=== PATIENT | male | born 1955 | race Caucasian/White ===

== ENCOUNTER → 2016-07-11 | Outpatient (CLI) | payer BC ==
[2016-07-11 09:35] LABS: ALT 29 U/L (21-72); AST 19 U/L (17-59); Alkaline Phosphatase 82 U/L (38-126); Anion Gap 13 mmol/L; Blood Urea Nitrogen 21 mg/dL (9-20); Calcium 9.2 mg/dL (8.4-10.2); Carbon Dioxide 24 mmol/L (22-30); Chloride 106 mmol/L (98-107); Cholesterol 155 mg/dL (<200); Glucose 128 mg/dL (74-99); HDL Cholesterol 49 mg/dL (40-60); Non-African American GFR(MDRD) >60 (>60 ml/min/1.73 sqM); Potassium 4.6 mmol/L (3.5-5.1); Sodium 143 mmol/L (137-145); Total Bilirubin 0.5 mg/dL (0.2-1.3); Total Protein 7.3 g/dL (6.3-8.2); Triglycerides 124 mg/dL (<150)
== END | disposition home or self-care (01) ==
LOC: LABWHC1 07:17
PROVIDERS: ATTEND Internal Medicine Interventional Cardiology
DX: E78.2 Mixed hyperlipidemia (principal); I48.0 Paroxysmal atrial fibrillation
CPT/HCPCS: 36415; 80053; 80061; 84443

== ENCOUNTER → 2017-01-11 | Outpatient (CLI) | payer BC ==
[2017-01-11 08:04] LABS: ALT 29 U/L (21-72); AST 20 U/L (17-59); Alkaline Phosphatase 85 U/L (38-126); Anion Gap 13 mmol/L; Blood Urea Nitrogen 28 mg/dL (9-20); Calcium 9.5 mg/dL (8.4-10.2); Carbon Dioxide 21 mmol/L (22-30); Chloride 108 mmol/L (98-107); Cholesterol 165 mg/dL (<200); Glucose 111 mg/dL (74-99); HDL Cholesterol 41 mg/dL (40-60); Non-African American GFR(MDRD) 55 (>60 ml/min/1.73 sqM); Potassium 4.9 mmol/L (3.5-5.1); Sodium 142 mmol/L (137-145); Total Bilirubin 0.3 mg/dL (0.2-1.3); Total Protein 7.1 g/dL (6.3-8.2)
== END | disposition home or self-care (01) ==
LOC: LABWHC1 06:59
PROVIDERS: ATTEND Internal Medicine Interventional Cardiology
DX: E78.2 Mixed hyperlipidemia (principal)
CPT/HCPCS: 36415; 80053; 80061

== ENCOUNTER → 2017-06-19 | Outpatient (CLI) | payer BC ==
--- NOTE | 2017-06-19 10:48 | XR ---
EXAMINATION TYPE: XR chest 2V DATE OF EXAM: 06/19/2017 COMPARISON: 04/07/2015 TECHNIQUE: PA and lateral views submitted. HISTORY: Chest Pain FINDINGS: The lungs are clear and there is no pneumothorax, pleural effusion, or focal pneumonia. Hypertrophi c and degenerative change of the spine. IMPRESSION: 1. No acute process.
== END | disposition home or self-care (01) ==
LOC: CPPFTMAIN 10:14
PROVIDERS: ATTEND Internal Medicine Interventional Cardiology
DX: J44.9 Chronic obstructive pulmonary disease, unspecified (principal); I25.10 Atherosclerotic heart disease of native coronary artery without angina pectoris
CPT/HCPCS: 71046; 94060; 94726; 94729

== ENCOUNTER → 2017-11-07 | Outpatient (CLI) | payer BC ==
[2017-11-07 08:57] LABS: Potassium 5.6 mmol/L (3.5-5.1); Total Bilirubin 0.2 mg/dL (0.2-1.3); Total Protein 6.5 g/dL (6.3-8.2)
== END | disposition home or self-care (01) ==
LOC: LABWHC1 07:10
PROVIDERS: ATTEND Internal Medicine Interventional Cardiology
DX: E78.2 Mixed hyperlipidemia (principal); I48.0 Paroxysmal atrial fibrillation
CPT/HCPCS: 36415; 80053; 80061; 84443

== ENCOUNTER → 2018-06-02 | Outpatient (CLI) | payer BC ==
[2018-06-02 17:32] LABS: Albumin 4.4 g/dL (3.80-4.90); Anion Gap 7.6 mmol/L (4.00-12.00); Calcium 9.5 mg/dL (8.7-10.3); Carbon Dioxide 26.4 mmol/L (21.6-31.8); Globulin 2.2 g/dL (1.6-3.3); LDL Cholesterol,Calculated 99.2 mg/dL (0.0-131.0); Total Bilirubin 0.4 mg/dL (0.2-1.2); Total Protein 6.6 g/dL (6.2-8.2); VLDL Calculation 16.8 mg/dL (5.00-40.00)
== END | disposition home or self-care (01) ==
LOC: LABWHC1 09:13
PROVIDERS: ATTEND Nurse Practitioner Adult Health
DX: E78.2 Mixed hyperlipidemia (principal)
CPT/HCPCS: 36415; 80053; 80061

== ENCOUNTER → 2019-01-26 | Outpatient (CLI) | payer BC ==
[2019-01-26 19:26] LABS: African American GFR (CKD) 57.4 (60.0-200.0); Albumin 4.1 g/dL (3.80-4.90); Albumin/Globulin Ratio 2.05 (1.60-3.17); Anion Gap 7.5 mmol/L (4.00-12.00); BUN/Creat Ratio 16.67 Ratio (12.00-20.00); Calcium 8.9 mg/dL (8.7-10.3); Carbon Dioxide 28.5 mmol/L (21.6-31.8); Chol/HDL Ratio 3.48; LDL Cholesterol,Calculated 83.2 mg/dL (0.0-131.0); Potassium 5.2 mmol/L (3.5-5.5); Total Bilirubin 0.3 mg/dL (0.2-1.2); Total Protein 6.1 g/dL (6.2-8.2); VLDL Calculation 20.8 mg/dL (5.00-40.00)
== END | disposition home or self-care (01) ==
LOC: LABWHC1 08:17
PROVIDERS: ATTEND Nurse Practitioner Adult Health
DX: E78.2 Mixed hyperlipidemia (principal); I48.0 Paroxysmal atrial fibrillation; I25.5 Ischemic cardiomyopathy
CPT/HCPCS: 36415; 80053; 80061; 84443

== ENCOUNTER → 2019-10-18 | Outpatient (CLI) | payer BC ==
[2019-10-18 11:09] LABS: African American GFR (CKD) 52.7 (60.0-200.0); Albumin 4.1 g/dL (3.80-4.90); Albumin/Globulin Ratio 1.86 (1.60-3.17); Anion Gap 7.2 mmol/L (4.00-12.00); BUN/Creat Ratio 17.5 Ratio (12.00-20.00); Carbon Dioxide 24.8 mmol/L (21.6-31.8); Chol/HDL Ratio 3.27; Globulin 2.2 g/dL (1.6-3.3); LDL Cholesterol,Calculated 88.4 mg/dL (0.0-131.0); Non-African American GFR(CKD) 45.5 (60.0-200.0); Potassium 4.7 mmol/L (3.5-5.5); Total Bilirubin 0.5 mg/dL (0.3-1.2); Total Protein 6.3 g/dL (6.2-8.2); VLDL Calculation 20.6 mg/dL (5.00-40.00)
== END | disposition home or self-care (01) ==
LOC: LABWHC1 07:11
PROVIDERS: ATTEND Internal Medicine Interventional Cardiology
DX: E78.2 Mixed hyperlipidemia (principal); I48.0 Paroxysmal atrial fibrillation
CPT/HCPCS: 36415; 80053; 80061; 84443

== ENCOUNTER → 2020-11-17 | Outpatient (CLI) | payer BC ==
[2020-11-17 16:17] LABS: African American GFR (CKD) 52.4 (60.0-200.0); Albumin 4.3 g/dL (3.80-4.90); Albumin/Globulin Ratio 1.87 (1.60-3.17); Anion Gap 7.6 mmol/L (4.00-12.00); BUN/Creat Ratio 16.88 Ratio (12.00-20.00); Calcium 9.1 mg/dL (8.7-10.3); Carbon Dioxide 27.4 mmol/L (21.6-31.8); Globulin 2.3 g/dL (1.6-3.3); LDL Cholesterol,Calculated 41.6 mg/dL (0.0-131.0); Non-African American GFR(CKD) 45.2 (60.0-200.0); Potassium 4.9 mmol/L (3.5-5.5); Total Bilirubin 0.6 mg/dL (0.3-1.2); Total Protein 6.6 g/dL (6.2-8.2); VLDL Calculation 24.4 mg/dL (5.00-40.00)
== END | disposition home or self-care (01) ==
LOC: LABWHC1 07:10
PROVIDERS: ATTEND Internal Medicine Interventional Cardiology
DX: E78.2 Mixed hyperlipidemia (principal)
CPT/HCPCS: 36415; 80053; 80061

== ENCOUNTER → 2021-04-28 | Outpatient (CLI) | payer BC ==
[2021-04-28 10:42] LABS: ALT 15 U/L (10-49); AST 13 U/L (14-35); African American GFR (CKD) 61.1 (60.0-200.0); Albumin 4.1 g/dL (3.8-4.9); Albumin/Globulin Ratio 1.46 (1.60-3.17); Alkaline Phosphatase 99 U/L (41-126); BUN/Creat Ratio 18.14 Ratio (12.00-20.00); Blood Urea Nitrogen 25.4 mg/dL (9.0-27.0); Calcium 9.5 mg/dL (8.7-10.3); Carbon Dioxide 23.6 mmol/L (20.0-27.5); Chloride 103 mmol/L (96-109); Chol/HDL Ratio 2.44 Ratio; Globulin 2.8 g/dL (1.6-3.3); Glucose 118 mg/dL (70-110); LDL Cholesterol,Calculated 45.2 mg/dL (0.0-131.0); Non-African American GFR(CKD) 52.7 (60.0-200.0); Potassium 5.3 mmol/L (3.5-5.5); Sodium 138 mmol/L (135-145); Total Protein 6.9 g/dL (6.2-8.2); VLDL Calculation 18.56 mg/dL (5.00-40.00)
== END | disposition home or self-care (01) ==
LOC: LABWHC1 07:33
PROVIDERS: ATTEND Internal Medicine Interventional Cardiology
DX: I48.0 Paroxysmal atrial fibrillation (principal); E78.2 Mixed hyperlipidemia
CPT/HCPCS: 36415; 80053; 80061; 84443

== ENCOUNTER → 2021-12-07 | Outpatient (CLI) | payer BC ==
[2021-12-07 15:39] LABS: ALT 19 U/L (10-49); AST 17 U/L (14-35); African American GFR (CKD) 59.6 (60.0-200.0); Albumin 4.4 g/dL (3.8-4.9); Albumin/Globulin Ratio 1.84 (1.60-3.17); Alkaline Phosphatase 88 U/L (41-126); BUN/Creat Ratio 26.92 Ratio (12.00-20.00); Blood Urea Nitrogen 38.5 mg/dL (9.0-27.0); Calcium 9.6 mg/dL (8.7-10.3); Carbon Dioxide 23.1 mmol/L (20.0-27.5); Chloride 103 mmol/L (96-109); Chol/HDL Ratio 2.69 Ratio; Globulin 2.4 g/dL (1.6-3.3); Glucose 117 mg/dL (70-110); Non-African American GFR(CKD) 51.4 (60.0-200.0); Sodium 137 mmol/L (135-145); Total Protein 6.9 g/dL (6.2-8.2)
== END | disposition home or self-care (01) ==
LOC: LABWHC1 09:02
PROVIDERS: ATTEND Nurse Practitioner Adult Health
DX: I48.0 Paroxysmal atrial fibrillation (principal); E78.2 Mixed hyperlipidemia
CPT/HCPCS: 36415; 80053; 80061; 84443

== ENCOUNTER → 2023-07-24 | Outpatient (CLI) | payer MEDICARE, BC ==
--- NOTE | 2023-07-24 12:00 | XR ---
EXAMINATION TYPE: XR knee complete bilateral DATE OF EXAM: 07/24/2023 COMPARISON: NONE HISTORY: 68-year-old male chronic bilateral knee pain for 6 weeks TECHNIQUE: 3 views each site along with bilateral upright weightbearing view. FINDINGS: There is tricompartmental degenerative change in both sides with marginal spurring. Some me niscal chondrocalcinosis noted on the right. There is at least moderate loss of cartilage and joint s pace in the left medial compartment. Small knee joint effusions, left greater than right. On the weig htbearing view, we note [id number] abutment of the left medial compartment and mild overall narrowi ng of the joint space in the right medial compartment. The right medial meniscus may be torn and extr uded. No acute fracture, subluxation, dislocation. IMPRESSION: 1. Tricompartmental osteoarthrosis, severe, bone on bone left medial compartment. 2. Small joint effusions, left greater than right. 3. The right medial meniscus may be torn and extruded.
== END | disposition home or self-care (01) ==
LOC: RADXRMAIN 09:18
PROVIDERS: ATTEND Family Medicine
DX: M25.461 Effusion, right knee (principal); M25.462 Effusion, left knee

== ENCOUNTER 2023-10-17 08:23 | Inpatient (IN) | payer MEDICARE, BC ==
--- NOTE | 2023-10-17 08:50 | ED ---
General Adult HPI - General Chief complaint: Chest Pain Stated complaint: SOB Time Seen by Provider: 10/17/23 08:41 Source: patient, RN notes reviewed, old records reviewed Mode of arrival: wheelchair Limitations: no limitations - History of Present Illness Initial comments: 68-year-old male presenting with chest pain, dyspnea. History of atrial fibril lation. Patient is on Eliquis and atenolol. Patient states he took his medication this morning. Patient has had several days of diarrhea and has been drinking Gatorade and attempt to stay hydrated. Patient took nitroglycerin at home with some relief in his chest pain. - Related Data Home Medications Medication Instructions Recorded Confirmed Enalapril [Vasotec] 5 mg PO DAILY 04/07/15 10/17/23 Nitroglycerin Sl Tabs [Nitrostat] 0.4 mg SUBLINGUAL Q5M PRN 04/07/15 10/17/23 atenoloL [Tenormin] 25 mg PO BID 04/07/15 10/17/23 Atorvastatin [Lipitor] 40 mg PO DAILY 09/25/15 10/17/23 Apixaban [Eliquis] 5 mg PO BID 10/17/23 10/17/23 Aspirin EC [Ecotrin Low Dose] 81 mg PO DAILY 10/17/23 10/17/23 Cholecalciferol (Vitamin D3) 1,250 mcg PO AVALOS 10/17/23 10/17/23 [Vitamin D3 (1250 Mcg = 50,000 Iu)] Ezetimibe [Zetia] 10 mg PO DAILY 10/17/23 10/17/23 Allergies Allergy/AdvReac Type Severity Reaction Status Date / Time No Known Allergies Allergy Verified 10/17/23 11:26 Review of Systems ROS Statement: Those systems with pertinent positive or pertinent negative responses have been documented in the HPI. ROS Other: All systems not noted in ROS Statement are negative. Past Medical History Past Medical History: Atrial Fibrillation, Coronary Artery Disease (CAD), Chest Pain / Angina, Hyperlipidemia, Hypertension, Myocardial Infarction (LA), Osteoarthritis (OA), Prostate Disorder, Sleep Apnea/CPAP/BIPAP Additional Past Medical History / Comment(s): CPAP, papitations,diverticular disease, kidney stones, Last Myocardial Infarction Date:: 2003 History of Any Multi-Drug Resistant Organisms: None Reported Past Surgical History: Cardiac Ablation, Heart Catheterization With Stent Additional Past Surgical History / Comment(s): will knee arthroscopies, 2 heart cath-total 3 stents (pt not sure what arteries, colonoscopy, - lt eye sx d/t lazy eye. ovidio, cardioversion , Past Anesthesia/Blood Transfusion Reactions: No Reported Reaction Date of Last Stent Placement:: 2003 Past Psychological History: No Psychological Hx Reported Past Alcohol Use History: Occasional Past Drug Use History: None Reported - Past Family History Father Additional Family Medical History / Comment(s): age 68 from emphysema and etoh abuse. Mother Family Medical History: Congestive Heart Failure (CHF) Additional Family Medical History / Comment(s): still living-is 93 years aold General Exam Limitations: no limitations General appearance: alert, in no apparent distress Head exam: Present: atraumatic, normocephalic Eye exam: Present: normal appearance, PERRL ENT exam: Present: normal exam Neck exam: Present: normal inspection. Absent: tenderness, meningismus Respiratory exam: Present: normal lung sounds bilaterally. Absent: respiratory distress, wheezes Cardiovascular Exam: Present: tachycardia, irregular rhythm GI/Abdominal exam: Present: soft. Absent: distended, tenderness Extremities exam: Present: normal inspection, normal capillary refill. Absent: pedal edema Neurological exam: Present: alert, oriented X3 Psychiatric exam: Present: normal affect, normal mood Course Vital Signs 10/17/23 10/17/23 10/17/23 08:32 08:54 09:35 Temperature 97.6 F Pulse Rate 73 146 H 142 H Respiratory 16 24 20 Rate Blood Pressure 100/56 82/42 75/47 O2 Sat by Pulse 95 97 96 Oximetry 10/17/23 10/17/23 10/17/23 10:00 10:34 11:08 Temperature Pulse Rate 141 H 141 H Respiratory 20 20 Rate Blood Pressure 84/56 96/77 83/50 O2 Sat by Pulse 98 95 Oximetry Medical Decision Making - Medical Decision Making Was pt. sent in by a medical professional or institution (, PA, BUSINESS APPLICATIONS SPECIALIST, urgent care, hospital, or penitentiary...) When possible be specific @ -No Did you speak to anyone other than the patient for history (EMS, parent, family, police, friend...)? What history was obtained from this source @ -No Did you review nursing and triage notes (agree or disagree)? Why? @ -I reviewed and agree with nursing and triage notes Were old charts reviewed (outside hosp., previous admission, EMS record, old EKG, old radiological studies, urgent care reports/EKG's, penitentiary records)? Report findings @ -No old charts were reviewed Differential Dyspnea: Coronary syndrome, arrhythmia, tamponade, asthma, COPD, pulmonary embolism, pneumonia, pneumothorax, pulmonary effusion, anaphylaxis, diabetic ketoacidosis, flailed chest, pulmonary contusion, diaphragmatic rupture, anemia, neuromuscu lar, this is not meant to be an all-inclusive list. EKG interpreted by me (3pts min.). @ -EKG: Atrial fibrillation with RVR, rate of 155, QRS duration 90, QTc 371, no ST segment elevation. X-rays interpreted by me (1pt min.). @Chest x-ray is clear, no acute cardiopulmonary findings. CT interpreted by me (1pt min.). @ -None done U/S interpreted by me (1pt. min.). @ -None done What testing was considered but not performed or refused? (CT, X-rays, U/S, labs)? Why? @ -None What meds were considered but not given or refused? Why? @ -None Did you discuss the management of the patient with other professionals (professionals i.e. , PA, BUSINESS APPLICATIONS SPECIALIST, lab, RT, psych nurse, hospice social worker, tufter, teacher, casino surveillance officer, casework manager)? Give summary @ -Yes, discussed with Dr. Alves who will admit, case discussed with Dr. Byrd covering for cardiology, recommends 4 g magnesium IV given over 1 hour. Was smoking cessation discussed for >3mins.? @ -No Was critical care preformed (if so, how long)? @ yes, 35 min Were there social determinants of health that impacted care today? How? (Homelessness, low income, unemployed, alcoholism, drug addiction, transportation, low edu. Level, literacy, decrease access to med. care, alf, rehab)? @ -No Was there de-escalation of care discussed even if they declined (Discuss DNR or withdrawal of care, Hospice)? DNR status @ -No What co-morbidities impacted this encounter? (DM, HTN, Smoking, COPD, CAD, Cancer, CVA, ARF, Chemo, Hep., AIDS, mental health diagnosis, sleep apnea, morbid obesity)? @History of atrial fibrillation Was patient admitted / discharged? Hospital course, mention meds given and route, prescriptions, significant lab abnormalities, going to OR and other pertinent info. @ 68 yo male presenting with palpitations, chest pain. Patient initially has low blood pressure and is in atrial fibrillation with a rapid ventricular respo nse. Patient states his blood pressure runs low at baseline. He does admit to a diarrheal illness over the past 3 days and does appear dehydrated on exam. His chest x-ray is clear. Patient has leukocytosis and elevated hemoglobin that hemoglobin likely related to hemoconcentration from dehydration. He has acute kidney injury with elevated BUN and creatinine. He has a minimal troponin elevation which I suspect is from demand and acute kidney injury. This level will be trended. The patient is on Eliquis and is anticoagulated. He started on Cardizem for rate control. I discussed case with the admitting physician Dr. Alves as well as pick remover. Patient will be admitted to the stepdown unit for close monitoring. Undiagnosed new problem with uncertain prognosis? @ -No Drug Therapy requiring intensive monitoring for toxicity (Heparin, Nitro, Insulin, Cardizem)? @ -No Were any procedures done? @ -No Diagnosis/symptom? @ -Default Acute, or Chronic, or Acute on Chronic? @Atrial fibrillation with RVR, POLINA, troponin elevation Uncomplicated (without systemic symptoms) or Complicated (systemic symptoms)? @ -Default Side effects of treatment? @ -No Exacerbation, Progression, or Severe Exacerbation? @ -No Poses a threat to life or bodily function? How? (Chest pain, USA, LA, pneumonia, PE, COPD, DKA, ARF, appy, cholecystitis, CVA, Diverticulitis, Homicidal, Suicidal, threat to staff... and all critical care pts) @yes, arrhythmia, volume loss, electrolyte abnormality - Lab Data Result diagrams: 10/17/23 08:51 10/17/23 08:51 Lab Results 10/17/23 10/17/23 10/17/23 Range/Units 08:51 08:51 08:51 WBC 14.7 H (3.8-10.6) k/uL RBC 6.03 H (4.30-5.90) m/uL Hgb 17.6 H (13.0-17.5) gm/dL Hct 54.3 H (39.0-53.0) % MCV 90.1 (80.0-100.0) fL MCH 29.3 (25.0-35.0) pg MCHC 32.5 (31.0-37.0) g/dL RDW 14.1 (11.5-15.5) % Plt Count 333 (150-450) k/uL MPV 8.5 Neutrophils % 70 % Lymphocytes % 15 % Monocytes % 7 % Eosinophils % 5 % Basophils % 0 % Neutrophils # 10.3 H (1.3-7.7) k/uL Lymphocytes # 2.3 (1.0-4.8) k/uL Monocytes # 1.0 (0-1.0) k/uL Eosinophils # 0.7 (0-0.7) k/uL Basophils # 0.1 (0-0.2) k/uL PT 12.9 H (10.0-12.5) sec INR 1.2 H (<1.2) APTT 25.4 (22.0-30.0) sec Sodium 137 (137-145) mmol/L Potassium 4.5 (3.5-5.1) mmol/L Chloride 107 (98-107) mmol/L Carbon Dioxide 13 L (22-30) mmol/L Anion Gap 17 mmol/L BUN 36 H (9-20) mg/dL Creatinine 2.42 H (0.66-1.25) mg/dL Est GFR (CKD-EPI)AfAm 31 (>60 ml/min/1.73 sqM) Est GFR (CKD-EPI)NonAf 27 (>60 ml/min/1.73 sqM) Glucose 141 H (74-99) mg/dL Calcium 10.1 (8.4-10.2) mg/dL Magnesium 1.7 (1.6-2.3) mg/dL Total Bilirubin 0.6 (0.2-1.3) mg/dL AST 17 (17-59) U/L ALT 15 (4-49) U/L Alkaline Phosphatase 131 H (38-126) U/L Troponin I (0.000-0.034) ng/mL Total Protein 6.7 (6.3-8.2) g/dL Albumin 4.2 (3.5-5.0) g/dL 10/17/23 Range/Units 08:51 WBC (3.8-10.6) k/uL RBC (4.30-5.90) m/uL Hgb (13.0-17.5) gm/dL Hct (39.0-53.0) % MCV (80.0-100.0) fL MCH (25.0-35.0) pg MCHC (31.0-37.0) g/dL RDW (11.5-15.5) % Plt Count (150-450) k/uL MPV Neutrophils % % Lymphocytes % % Monocytes % % Eosinophils % % Basophils % % Neutrophils # (1.3-7.7) k/uL Lymphocytes # (1.0-4.8) k/uL Monocytes # (0-1.0) k/uL Eosinophils # (0-0.7) k/uL Basophils # (0-0.2) k/uL PT (10.0-12.5) sec INR (<1.2) APTT (22.0-30.0) sec Sodium (137-145) mmol/L Potassium (3.5-5.1) mmol/L Chloride (98-107) mmol/L Carbon Dioxide (22-30) mmol/L Anion Gap mmol/L BUN (9-20) mg/dL Creatinine (0.66-1.25) mg/dL Est GFR (CKD-EPI)AfAm (>60 ml/min/1.73 sqM) Est GFR (CKD-EPI)NonAf (>60 ml/min/1.73 sqM) Glucose (74-99) mg/dL Calcium (8.4-10.2) mg/dL Magnesium (1.6-2.3) mg/dL Total Bilirubin (0.2-1.3) mg/dL AST (17-59) U/L ALT (4-49) U/L Alkaline Phosphatase (38-126) U/L Troponin I 0.094 H* (0.000-0.034) ng/mL Total Protein (6.3-8.2) g/dL Albumin (3.5-5.0) g/dL Critical Care Time Critical Care Time: Yes Total Critical Care Time: 35 Disposition Clinical Impression: Atrial fibrillation with RVR, POLINA (acute kidney injury) Disposition: ADMITTED IP TO THIS HOSP Condition: Stable Is patient prescribed a controlled substance at d/c from ED?: No Time of Disposition: 10:59
[2023-10-17] MEDS: SODIUM CHLORIDE 0.9% 500 ML 500 ML IV STA (08:58)
[2023-10-17 09:02] LABS: Basophils # (A) 0.1 k/uL (0-0.2); Basophils % (A) 0 %; Eosinophils # (A) 0.7 k/uL (0-0.7); Eosinophils % (A) 5 %; HCT 54.3 % (39.0-53.0); HGB 17.6 gm/dL (13.0-17.5); Lymphocytes # (A) 2.3 k/uL (1.0-4.8); Lymphocytes % (A) 15 %; MCH 29.3 pg (25.0-35.0); MCHC 32.5 g/dL (31.0-37.0); MCV 90.1 fL (80.0-100.0); Mean Platelet Volume 8.5; Monocytes % (A) 7 %; Neutrophils # (A) 10.3 k/uL (1.3-7.7); Neutrophils % (A) 70 %; Platelet Count 333 k/uL (150-450); RBC 6.03 m/uL (4.30-5.90); RDW 14.1 % (11.5-15.5); WBC 14.7 k/uL (3.8-10.6)
[2023-10-17 09:14] LABS: INR 1.2 (<1.2); Partial Thromboplastin Time 25.4 sec (22.0-30.0); Prothrombin Time 12.9 sec (10.0-12.5)
[2023-10-17] MEDS: SODIUM CHLORIDE 0.9% 500 ML 500 ML IV ONE ×2 (09:29→09:38)
[2023-10-17 09:39] LABS: ALT 15 U/L (4-49); AST 17 U/L (17-59); African American GFR (CKD) 31 (>60 ml/min/1.73 sqM); Albumin 4.2 g/dL (3.5-5.0); Alkaline Phosphatase 131 U/L (38-126); Anion Gap 17 mmol/L; Blood Urea Nitrogen 36 mg/dL (9-20); Calcium 10.1 mg/dL (8.4-10.2); Carbon Dioxide 13 mmol/L (22-30); Chloride 107 mmol/L (98-107); Glucose 141 mg/dL (74-99); Magnesium 1.7 mg/dL (1.6-2.3); Non-African American GFR(CKD) 27 (>60 ml/min/1.73 sqM); Potassium 4.5 mmol/L (3.5-5.1); Sodium 137 mmol/L (137-145); Total Bilirubin 0.6 mg/dL (0.2-1.3); Total Protein 6.7 g/dL (6.3-8.2)
--- NOTE | 2023-10-17 09:48 | XR ---
EXAMINATION TYPE: XR chest 2V DATE OF EXAM: 10/17/2023 COMPARISON: 06/19/2017 HISTORY: 68-year-old male dysrhythmia, shortness of breath, and chest pain TECHNIQUE: PA and lateral views FINDINGS: Heart normal size. Aorta and pulmonary vasculature within normal limits. Hyperinflation. No consolida tion or pleural effusion. IMPRESSION: Mild hyperinflation may relate to depth of inspiration or underlying emphysema. Clinically correlate. Otherwise, no acute process seen.
[2023-10-17] MEDS: SODIUM CHLORIDE 0.9% 1,000 ML IV SCH (10:31)
[2023-10-17] MEDS: DILTIAZEM DRIP BOLUS FROM BAG 1 MG SOLN IV ONE (10:33)
[2023-10-17] MEDS: DILTIAZEM 125 MG in SODIUM CHLORIDE 0.9% 100 ML IV SCH (10:33)
[2023-10-17] MEDS ORDERED: NALOXONE 0.4 MG/ML 1 ML VIAL IV PRN (10:55)
[2023-10-17] MEDS ORDERED: ACETAMINOPHEN TAB 325 MG TAB PO PRN (10:55)
[2023-10-17] MEDS: MAGNESIUM SULFATE-WATER PMX 4 GM in WATER FOR INJECTION 1 100ML.BAG IVPB ONE (12:06)
[2023-10-17] MEDS: atenoloL 25 MG TAB PO SCH (20:38)
[2023-10-17] MEDS: APIXABAN 5 MG TAB PO SCH (20:39)
--- NOTE | 2023-10-17 23:30 | P.HPIM ---
History of Present Illness H&P Date: 10/17/23 Chief Complaint: Chest pain Patient is a 68-year-old male with a past medical history of atrial fibrillation on anticoagulation with Eliquis, obstructive sleep apnea on CPAP, hypertension, hyperlipidemia, osteoarthritis, history of cardiac ablation, coronary artery disease history of stent placement presents to ER with complaints of chest pain and shortness of breath. Patient stated he has been having diarrhea for the past few days and has been drinking Gatorade to stay hydrated. Patient states that he took nitroglycerin sublingual due to chest pain which seem to improve his pain. Currently denies any chest pain. No leg swelling. No cough or sputum production. Denies any further episodes of diarrhea while in the hospital. EKG showed atrial fibrillation with rapid ventricular rate and heart rate went up to 155. Chest x-ray showed mild hyperinflation may relate to depth of respiration or underlying emphysema. Laboratory pressure WBC 14.7, hemoglobin 17.6 and platelets 333 sodium 137 potassium 4.5 chloride 107 bicarb is 13 BUN 36 and creatinine 2.42 baseline creatinine level 1.4 on 07/07/2023. Blood sugar 141, AST 17 ALT 59 alk phos 131 total bili 0.6 Troponin 0.094, 0.104 and 0.157 Albumin 4.2 Review of Systems Constitutional: Patient denies any fever or chills . Generalized weakness and. No loss of appetite. Abdomen: Patient denied nausea vomiting or abdominal pain. Patient was having diarrhea at home. Cardiovascular: Patient denies any chest pain or short of breath no palpitations. Respiratory: patient denied any cough or sputum production. No shortness of breath Neurologic: Patient denied any numbness or tingling. no headache. Musculoskeletal: Patient denies any complaints of joint swelling or deformity. Skin: Negative Psychiatric: Negative Endocrine: No heat or cold intolerance. No recent weight gain. Genitourinary: No dysuria or hematuria. All other 14 point ROS negative except the above Past Medical History Past Medical History: Atrial Fibrillation, Coronary Artery Disease (CAD), Chest Pain / Angina, Hyperlipidemia, Hypertension, Myocardial Infarction (OR), Osteoarthritis (OA), Prostate Disorder, Sleep Apnea/CPAP/BIPAP Additional Past Medical History / Comment(s): CPAP, papitations,diverticular disease, kidney stones, Last Myocardial Infarction Date:: 2003 History of Any Multi-Drug Resistant Organisms: None Reported Past Surgical History: Cardiac Ablation, Heart Catheterization With Stent Additional Past Surgical History / Comment(s): will knee arthroscopies, 2 heart cath-total 3 stents (pt not sure what arteries, colonoscopy, - lt eye sx d/t lazy eye. ovidio, cardioversion , Past Anesthesia/Blood Transfusion Reactions: No Reported Reaction Date of Last Stent Placement:: 2003 Past Psychological History: No Psychological Hx Reported Past Alcohol Use History: Occasional Past Drug Use History: None Reported - Past Family History Father Additional Family Medical History / Comment(s): age 68 from emphysema and etoh abuse. Mother Family Medical History: Congestive Heart Failure (CHF) Additional Family Medical History / Comment(s): still living-is 93 years aold Medications and Allergies Home Medications Medication Instructions Recorded Confirmed Type Enalapril [Vasotec] 5 mg PO DAILY 04/07/15 10/17/23 History Nitroglycerin Sl Tabs [Nitrostat] 0.4 mg SUBLINGUAL Q5M PRN 04/07/15 10/17/23 History atenoloL [Tenormin] 25 mg PO BID 04/07/15 10/17/23 History Atorvastatin [Lipitor] 40 mg PO DAILY 09/25/15 10/17/23 History Apixaban [Eliquis] 5 mg PO BID 10/17/23 10/17/23 History Aspirin EC [Ecotrin Low Dose] 81 mg PO DAILY 10/17/23 10/17/23 History Cholecalciferol (Vitamin D3) 1,250 mcg PO AVALOS 10/17/23 10/17/23 History [Vitamin D3 (1250 Mcg = 50,000 Iu)] Ezetimibe [Zetia] 10 mg PO DAILY 10/17/23 10/17/23 History Allergies Allergy/AdvReac Type Severity Reaction Status Date / Time No Known Allergies Allergy Verified 10/17/23 11:26 Physical Exam Vitals: Vital Signs Temp Pulse Resp BP Pulse Ox 10/17/23 22:19 75 101/65 97 10/17/23 21:50 74 18 84/57 96 10/17/23 18:16 82 20 101/62 96 10/17/23 16:45 74 18 113/93 95 10/17/23 15:00 78 18 113/93 95 10/17/23 13:18 129 H 20 112/76 98 10/17/23 12:34 134 H 20 91/79 96 10/17/23 12:20 147 H 22 92/61 96 10/17/23 12:11 137 H 20 80/63 96 10/17/23 12:00 156 H 20 97/58 96 10/17/23 11:08 141 H 20 83/50 95 10/17/23 10:34 141 H 20 96/77 98 10/17/23 10:00 84/56 10/17/23 09:35 142 H 20 75/47 96 10/17/23 08:54 146 H 24 82/42 97 10/17/23 08:32 97.6 F 73 16 100/56 95 Intake and Output 10/17/23 10/17/23 10/18/23 14:59 22:59 06:59 Intake Total 57.583 Balance 57.583 Intake: Intake, IV Titration 57.583 Amount Diltiazem 125 mg In 57.583 Sodium Chloride 0.9% 100 ml @ 5 MG/HR 5 mls/hr IV .Q24H [facility] Rx#:[id number] Other: Weight 156.489 kg PHYSICAL EXAMINATION: Patient is lying in the bed comfortably, no acute distress, awake alert and oriented. Morbidly obese. HEENT: Normocephalic. Neck is supple. Pupils reactive. Nostrils clear. Oral cavity is moist. Neck reveals no JVD, carotid bruits, or thyromegaly. CHEST EXAMINATION: Trachea is central. Symmetrical expansion. Lung ibarra clear to auscultation and percussion. CARDIAC: Normal S1, S2 with no gallops. No murmurs, irregularly regular rhythm. ABDOMEN: Soft. Bowel sounds normal. No organomegaly. No abdominal bruits. Extremities: reveal no edema. No clubbing or cyanosis Neurologically awake, alert, oriented x3 with well-coordinated movements. No focal deficits noted Skin: No rash or skin lesions. Psychiatric: Coperative. Nonsuicidal Musculoskeletal: No joint swelling or deformity. Normal range of motion. Results CBC & Chem 7: 10/17/23 08:51 10/17/23 08:51 Labs: Abnormal Lab Results - Last 24 Hours (Table) 10/17/23 10/17/23 10/17/23 Range/Units 08:51 08:51 08:51 WBC 14.7 H (3.8-10.6) k/uL RBC 6.03 H (4.30-5.90) m/uL Hgb 17.6 H (13.0-17.5) gm/dL Hct 54.3 H (39.0-53.0) % Neutrophils # 10.3 H (1.3-7.7) k/uL PT 12.9 H (10.0-12.5) sec INR 1.2 H (<1.2) Carbon Dioxide 13 L (22-30) mmol/L BUN 36 H (9-20) mg/dL Creatinine 2.42 H (0.66-1.25) mg/dL Glucose 141 H (74-99) mg/dL Alkaline Phosphatase 131 H (38-126) U/L Troponin I (0.000-0.034) ng/mL 10/17/23 10/17/23 10/17/23 Range/Units 08:51 11:36 15:10 WBC (3.8-10.6) k/uL RBC (4.30-5.90) m/uL Hgb (13.0-17.5) gm/dL Hct (39.0-53.0) % Neutrophils # (1.3-7.7) k/uL PT (10.0-12.5) sec INR (<1.2) Carbon Dioxide (22-30) mmol/L BUN (9-20) mg/dL Creatinine (0.66-1.25) mg/dL Glucose (74-99) mg/dL Alkaline Phosphatase (38-126) U/L Troponin I 0.094 H* 0.104 H* 0.157 H* (0.000-0.034) ng/mL Thrombosis Risk Factor Assmnt - DVT/VTE Prophylaxis DVT/VTE Prophylaxis: Pharmacologic Prophylaxis ordered Assessment and Plan Assessment: Atrial fibrillation with rapid ventricular response Elevated troponin level possible demand ischemia. Paroxysmal atrial fibrillation on anticoagulation with Eliquis Acute kidney injury likely prerenal due to diarrhea. Creatinine 2.42 on admission. Baseline creatinine 1.4 Coronary artery disease history of stent placement Hypertension Hyperlipidemia Osteoarthritis Obstructive sleep apnea Leukocytosis likely reactive. Rule out infection. Morbid obesity BMI 46.8 BPH DVT prophylaxis patient is already on Eliquis at home Plan: Patient will be continued on IV hydration. Continue with daily monitoring. Patient was started on Cardizem drip Hydrated. Patient was started back on home dose of atenolol and apixaban. Yana ent currently denies any episodes of diarrhea while in the hospital. Continue symptomatic management and follow-up closely. Cardiology was consulted for evaluation. Time with Patient: Greater than 30
--- NOTE | 2023-10-18 09:16 | P.CRDCN ---
History of Present Illness Consult date: 10/18/23 Reason for Consult (text): AF W RVR History of present illness: This is a 68-year-old male patient of Dr. Villalobos with past medical history of c oronary artery disease with previous stent to the proximal OM1, mid D1, distal circumflex, paroxysmal atrial fibrillation on Eliquis with previous ablation in 2012, ischemic cardiomyopathy with EF of 35%, hypertension, hyperlipidemia. We have been asked to evaluate the patient for A-fib with RVR. Patient gives history that he has had 3 to 4 days worth of diarrhea states he was going every 20 minutes but drinking Gatorade. He then felt he went into A-fib with RVR and presented to the hospital. Patient states continues to have diarrhea but less frequent. He denies any previous history of kidney problems. Patient was started on IV fluids and as recommended by Dr. Byrd, patient was given magnesium 4 g over 1 hour and subsequently converted to sinus rhythm. Patient is also known to have sinus bradycardia at rest. He had atrial flutter ablation done in 2012. Patient does not think he has had an episode of atrial fibrillation in 10 years or more. EKG: #1 atrial fibrillation 155 bpm, #2 sinus rhythm at 76 bpm. Chest x-ray: Mild hyperinflation may relate to depth of inspiration or underlying emphysema. No acute process. Laboratory studies: WBC 14.7, hemoglobin 17.6. Sodium 137, potassium 4.5, BUN 36 creatinine 2.42. Troponins 0.094, 0.104, 0.157. Alkaline phosphatase 131. Home cardiac medications: Eliquis 5 mg twice daily, aspirin 81 mg daily, atenolol 25 mg twice daily, atorvastatin 40 mg daily, enalapril 5 mg daily, Zetia 10 mg daily, Nitrostat as needed. Cardiac catheterization performed 04/09/2015 revealed calcified coronary arteries. Mild to moderate triple-vessel coronary artery disease. Mildly impaired left ventricular systolic function. Patient previous PCI with stenting of the OM1 in 2013, stenting of the mid D1 in 2004 and stenting of the distal circumflex in 2000. Echocardiogram performed 10/15/2020 in the office revealed EF 50%, mild mitral digitation, mild tricuspid regurgitation, PASP 20 mmHg. Lexiscan Cardiolite stress test performed in the office on 10/15/2020 revealed nondiagnostic electrocardiographic stress testing. Abnormal myocardial pe rfusion imaging with prior AL involving the inferior and inferior basal lateral wall with segmental wall motion abnormalities consistent with myocardial infarction involving the right coronary artery territory. No evidence of stress induced ischemia. RF a for atrial flutter and 05/01/2012. Review Of Systems: At the time of my exam: CONSTITUTIONAL: Denies fever or chills. HEENT: Denies blurred vision, vision changes, or eye pain. Denies hemoptysis CARDIOVASCULAR: Denies chest pain. Denies orthopnea. Denies PND. Denies palpitations RESPIRATORY: Denies shortness of breath. GASTROINTESTINAL: Denies abdominal pain. Denies nausea or vomiting. Reports diarrhea. HEMATOLOGIC: Denies bleeding disorders. GENITOURINARY: Denies any blood in urine. SKIN: Denies puritis. Denies rash. Physical examination: Gen: This is a 68-year-old male in no acute distress VS: reviewed HEENT: Head is atraumatic, normocephalic. Pupils equal, round. Sclerae is anicteric. NECK: Supple. No JVD. LUNGS: Clear to auscultation. No wheezes or rhonchi. No intercostal retractions. HEART: Regular rate and rhythm. 2/6 systolic murmur at the base. ABDOMEN: Soft No tenderness. EXTREMITIES: No pedal edema. No calf tenderness. NEUROLOGICAL: Patient is awake, alert and oriented x3. Assessment: Paroxysmal atrial fibrillation with RVR, converted to sinus rhythm with magnesium IV infusion Acute kidney injury secondary to diarrhea History of coronary artery disease with previous stenting as above Ischemic cardiomyopathy with previous EF of 35% Hypertension Hyperlipidemia Plan: Resume patient's home cardiac medications Further recommendations to follow based upon clinical course At the time of discharge, patient will follow-up with Dr. Villalobos in 1 to 2 weeks. Thank you kindly for this consultation. Nurse practitioner note has been reviewed, I agree with documented findings and plan of care. Patient was seen and examined. Past Medical History Past Medical History: Atrial Fibrillation, Coronary Artery Disease (CAD), Chest Pain / Angina, Hyperlipidemia, Hypertension, Myocardial Infarction ([place]), Osteoarthritis (OA), Prostate Disorder, Sleep Apnea/CPAP/BIPAP Additional Past Medical History / Comment(s): CPAP, papitations,diverticular d isease, kidney stones, afib for 20 years with no issues with afib in the last 10 years, on eliquis Last Myocardial Infarction Date:: 2003 History of Any Multi-Drug Resistant Organisms: None Reported Past Surgical History: Cardiac Ablation, Heart Catheterization With Stent Additional Past Surgical History / Comment(s): will knee arthroscopies, 3 heart cath-total 3 stents (pt not sure what arteries, colonoscopy, - lt eye sx d/t lazy eye. ovidio, cardioversion Past Anesthesia/Blood Transfusion Reactions: No Reported Reaction Date of Last Stent Placement:: 2003 Past Psychological History: No Psychological Hx Reported Smoking Status: Former smoker Past Alcohol Use History: Occasional Additional Past Alcohol Use History / Comment(s): quit smoking 2003, STARTED SMOKING AT AGE 17 -SMOKED 1PPD Past Drug Use History: None Reported - Past Family History Father Additional Family Medical History / Comment(s): age 68 from emphysema and etoh abuse. Mother Family Medical History: Congestive Heart Failure (CHF) Additional Family Medical History / Comment(s): still living-is 93 years aold Medications and Allergies Home Medications Medication Instructions Recorded Confirmed Type Enalapril [Vasotec] 5 mg PO DAILY 04/07/15 10/17/23 History Nitroglycerin Sl Tabs [Nitrostat] 0.4 mg SUBLINGUAL Q5M PRN 04/07/15 10/17/23 History atenoloL [Tenormin] 25 mg PO BID 04/07/15 10/17/23 History Atorvastatin [Lipitor] 40 mg PO DAILY 09/25/15 10/17/23 History Apixaban [Eliquis] 5 mg PO BID 10/17/23 10/17/23 History Aspirin EC [Ecotrin Low Dose] 81 mg PO DAILY 10/17/23 10/17/23 History Cholecalciferol (Vitamin D3) 1,250 mcg PO AVALOS 10/17/23 10/17/23 History [Vitamin D3 (1250 Mcg = 50,000 Iu)] Ezetimibe [Zetia] 10 mg PO DAILY 10/17/23 10/17/23 History Allergies Allergy/AdvReac Type Severity Reaction Status Date / Time No Known Allergies Allergy Verified 10/17/23 11:26 Physical Exam Vitals: Vital Signs Temp Pulse Pulse Resp BP BP Pulse Ox 10/18/23 06:48 80 16 120/64 98 10/18/23 04:00 78 88/60 97 10/18/23 00:00 98.2 F 76 80/59 10/17/23 22:19 75 101/65 97 10/17/23 21:50 74 18 84/57 96 10/17/23 18:16 82 20 101/62 96 10/17/23 16:45 74 18 113/93 95 10/17/23 15:00 78 18 113/93 95 10/17/23 13:18 129 H 20 112/76 98 10/17/23 12:34 134 H 20 91/79 96 10/17/23 12:20 147 H 22 92/61 96 10/17/23 12:11 137 H 20 80/63 96 10/17/23 12:00 156 H 20 97/58 96 10/17/23 11:08 141 H 20 83/50 95 10/17/23 10:34 141 H 20 96/77 98 10/17/23 10:00 84/56 10/17/23 09:35 142 H 20 75/47 96 10/17/23 08:54 146 H 24 82/42 97 10/17/23 08:32 97.6 F 73 16 100/56 95 Intake and Output 10/17/23 10/18/23 10/18/23 22:59 06:59 14:59 Intake Total 57.583 Balance 57.583 Intake: Intake, IV Titration 57.583 Amount Diltiazem 125 mg In 57.583 Sodium Chloride 0.9% 100 ml @ 5 MG/HR 5 mls/hr IV .Q24H [facility] Rx#:[id number] Other: # Bowel Movements 4 Weight 158.9 kg Results 10/17/23 08:51 10/17/23 08:51 Cardiac Enzymes 10/17/23 10/17/23 10/17/23 Range/Units 08:51 08:51 11:36 AST 17 (17-59) U/L Troponin I 0.094 H* 0.104 H* (0.000-0.034) ng/mL 10/17/23 Range/Units 15:10 AST (17-59) U/L Troponin I 0.157 H* (0.000-0.034) ng/mL Coagulation 10/17/23 Range/Units 08:51 PT 12.9 H (10.0-12.5) sec APTT 25.4 (22.0-30.0) sec CBC 10/17/23 Range/Units 08:51 WBC 14.7 H (3.8-10.6) k/uL RBC 6.03 H (4.30-5.90) m/uL Hgb 17.6 H (13.0-17.5) gm/dL Hct 54.3 H (39.0-53.0) % Plt Count 333 (150-450) k/uL Comprehensive Metabolic Panel 10/17/23 Range/Units 08:51 Sodium 137 (137-145) mmol/L Potassium 4.5 (3.5-5.1) mmol/L Chloride 107 (98-107) mmol/L Carbon Dioxide 13 L (22-30) mmol/L BUN 36 H (9-20) mg/dL Creatinine 2.42 H (0.66-1.25) mg/dL Glucose 141 H (74-99) mg/dL Calcium 10.1 (8.4-10.2) mg/dL AST 17 (17-59) U/L ALT 15 (4-49) U/L Alkaline Phosphatase 131 H (38-126) U/L Total Protein 6.7 (6.3-8.2) g/dL Albumin 4.2 (3.5-5.0) g/dL Current Medications Generic Name Dose Route Start Last Admin Trade Name Freq PRN Reason Stop Dose Admin Acetaminophen 650 mg 10/17/23 10:55 Acetaminophen Tab 325 Mg Tab PO Q6HR PRN Mild Pain or Fever > 100.5 Apixaban 5 mg 10/17/23 21:00 10/17/23 20:39 Apixaban 5 Mg Tab PO 5 mg BID EMERITA Administration Protocol Aspirin 81 mg 10/18/23 09:00 Aspirin 81 Mg PO DAILY [facility] Atenolol 25 mg 10/17/23 21:00 10/17/23 20:38 Atenolol 25 Mg Tab PO 25 mg BID EMERITA Administration Atorvastatin Calcium 40 mg 10/18/23 09:00 Atorvastatin 40 Mg Tab PO DAILY [facility] Diltiazem HCl 125 mg/ Sodium 125 mls @ 5 mls/hr 10/17/23 09:00 10/17/23 22:04 Chloride IV 0 mg/hr .Q24H EMERITA 0 mls/hr Infusion 5 MG/HR Sodium Chloride 1,000 mls @ 130 mls/hr 10/17/23 10:00 10/18/23 07:22 Saline 0.9% IV Not Given .Q7H42M [facility] Naloxone HCl 0.2 mg 10/17/23 10:55 Naloxone 0.4 Mg/Ml 1 Ml Vial IV Q2M PRN Opioid Reversal Intake and Output 10/17/23 10/18/23 10/18/23 22:59 06:59 14:59 Intake Total 57.583 Balance 57.583 Intake: Intake, IV Titration 57.583 Amount Diltiazem 125 mg In 57.583 Sodium Chloride 0.9% 100 ml @ 5 MG/HR 5 mls/hr IV .Q24H [facility] Rx#:[id number] Other: # Bowel Movements 4 Weight 158.9 kg 10/17/23 08:51 10/17/23 08:51
[2023-10-18 09:18] LABS: Basophils % (A) 0 %; Eosinophils # (A) 0.6 k/uL (0-0.7); Eosinophils % (A) 5 %; HCT 43.1 % (39.0-53.0); Lymphocytes # (A) 1.8 k/uL (1.0-4.8); Lymphocytes % (A) 13 %; MCH 29.1 pg (25.0-35.0); MCHC 33.1 g/dL (31.0-37.0); MCV 88.1 fL (80.0-100.0); Mean Platelet Volume 8.6; Monocytes # (A) 1.5 k/uL (0-1.0); Monocytes % (A) 12 %; Neutrophils # (A) 9.1 k/uL (1.3-7.7); Neutrophils % (A) 68 %; Platelet Count 254 k/uL (150-450); RBC 4.89 m/uL (4.30-5.90); RDW 14.3 % (11.5-15.5); WBC 13.3 k/uL (3.8-10.6)
[2023-10-18 09:20] LABS: HGB 14.3 gm/dL (13.0-17.5)
[2023-10-18 09:30] LABS: African American GFR (CKD) 57 (>60 ml/min/1.73 sqM); Anion Gap 11 mmol/L; Blood Urea Nitrogen 28 mg/dL (9-20); Calcium 8.6 mg/dL (8.4-10.2); Carbon Dioxide 14 mmol/L (22-30); Chloride 110 mmol/L (98-107); Glucose 96 mg/dL (74-99); Non-African American GFR(CKD) 49 (>60 ml/min/1.73 sqM); Sodium 135 mmol/L (137-145)
[2023-10-18] MEDS: ATORVASTATIN 40 MG TAB PO SCH (09:39)
[2023-10-18] MEDS: ASPIRIN 81 MG PO SCH (09:39)
[2023-10-18 10:31] LABS: Appearance,Urine Clear (Clear); Bilirubin,Urine Negative (Negative); Blood,Urine Trace (Negative); Color,Urine Light Yellow; Glucose,Urine (UA) Negative (Negative); Ketones,Urine 1+ (Negative); Leukocyte Esterase,Urine Negative (Negative); Mucus,Urine Rare /hpf; Nitrite,Urine Negative (Negative); Protein,Urine Trace (Negative); RBC,Urine 32 /hpf (0-5); Specific Gravity,Urine 1.023 (1.001-1.035); Squamous Epithelial Cell,Urine <1 /hpf (0-4); Urobilinogen,Urine <2.0 mg/dL (<2.0); WBC,Urine 2 /hpf (0-5)
[2023-10-18 11:49] VITALS: BP 98/62; PULSE 74; RESP 16; TEMP 97.9
[2023-10-18] MEDS: SODIUM CHLORIDE TAB 1 GM TAB PO SCH (11:50)
== END 2023-10-18 13:45 | disposition home or self-care (01) | DRG 309 ==
LOC: EC 08:23 → 3SCARD 10:55
PROVIDERS: ADMIT Internal Medicine; ATTEND Internal Medicine
DX: I48.0 Paroxysmal atrial fibrillation (principal); I24.89 Other forms of acute ischemic heart disease; N17.9 Acute kidney failure, unspecified; Z68.42 Body mass index [BMI] 45.0-49.9, adult; I48.92 Unspecified atrial flutter; I25.5 Ischemic cardiomyopathy; E78.5 Hyperlipidemia, unspecified; G47.33 Obstructive sleep apnea (adult) (pediatric); I10 Essential (primary) hypertension; I25.10 Atherosclerotic heart disease of native coronary artery without angina pectoris; I25.2 Old myocardial infarction; E66.01 Morbid (severe) obesity due to excess calories; M19.90 Unspecified osteoarthritis, unspecified site; N40.0 Benign prostatic hyperplasia without lower urinary tract symptoms; Z79.01 Long term (current) use of anticoagulants; Z79.82 Long term (current) use of aspirin; Z79.899 Other long term (current) drug therapy; D72.829 Elevated white blood cell count, unspecified; Z82.49 Family history of ischemic heart disease and other diseases of the circulatory system; Z87.891 Personal history of nicotine dependence; Z87.442 Personal history of urinary calculi; Z95.5 Presence of coronary angioplasty implant and graft; R19.7 Diarrhea, unspecified
CPT/HCPCS: 36415; 71046; 80048; 80053; 81001; 83036; 83735; 84443; 84484; 85025; 85610; 85730; 93005; 96361; 96365; 96366; 96368; 99291

== ENCOUNTER → 2023-11-09 | Outpatient (CLI) | payer MEDICARE, BC | END | disposition home or self-care (01) | LOC: LABPRL 07:15 | PROVIDERS: ATTEND Family Medicine | DX: E87.1 Hypo-osmolality and hyponatremia (principal) | CPT/HCPCS: 80048 ==

== ENCOUNTER → 2023-12-25 | Outpatient (CLI) | payer MEDICARE, BC ==
[2023-12-25 15:32] LABS: ALT 24 U/L (10-49); AST 21 U/L (14-35); Chol/HDL Ratio 2.82 Ratio; LDL Cholesterol,Calculated 61.5 mg/dL (0.0-131.0)
== END | disposition home or self-care (01) ==
LOC: LABWHC1 09:31
PROVIDERS: ATTEND Internal Medicine Interventional Cardiology
DX: E78.2 Mixed hyperlipidemia (principal)
CPT/HCPCS: 36415; 80061; 84450; 84460

== ENCOUNTER → 2024-01-16 | Outpatient (CLI) | payer MEDICARE, BC ==
[2024-01-16 09:27] LABS: African American GFR (CKD) 62 (>60 ml/min/1.73 sqM); Blood Urea Nitrogen 20 mg/dL (9-20); Non-African American GFR(CKD) 54 (>60 ml/min/1.73 sqM)
--- NOTE | 2024-01-16 10:32 | CT ---
EXAMINATION TYPE: CT urogram wo/w con CT DLP: 3990 mGycm, Automated exposure control for dose reduction was used. DATE OF EXAM: 01/16/2024 10:18 AM COMPARISON: CT abdomen pelvis 11/24/2011 CLINICAL INDICATION:Male, 68 years old with history of R31.0 GROSS HEMATURIA; PHH, Gross hematuria TECHNIQUE: Urogram of the abdomen and pelvis was performed before and after the administration of 100 cc of IV c ontrast Isovue 300 contrast. Delayed imaging was performed. Coronal and sagittal reformats were perfo rmed. One or more CT dose reduction strategies were utilized during this examination. FINDINGS: Limited examination due to ring artifact. GENITOURINARY: RIGHT KIDNEY AND URETER: Approximately 5 nonobstructive right renal calculi with largest measuring up to 9 mm. No hydronephrosis or hydroureter. No renal mass or other lesions. No urothelial lesions: no filling defect, dilation, stricture or wall thickening. LEFT KIDNEY AND URETER: 9 mm calculus at the left ureterovesical junction with moderate hydroureteron ephrosis. Prominent diffuse cortical atrophy of the left kidney. No renal mass or other lesions. No u rothelial lesions: no filling defect, dilation, stricture or wall thickening. URINARY BLADDER: Mildly distended. Normal, no calculi, mass or other lesions. REPRODUCTIVE: Unremarkable. ABDOMEN LIVER: Subcentimeter inferior right hepatic lobe hypodense lesion which is too small to characterize but likely represents a cyst. GALLBLADDER AND BILE DUCTS: Unremarkable PANCREAS: Unremarkable. SPLEEN: Unremarkable. ADRENAL GLANDS: Unremarkable. STOMACH AND BOWEL: No focal bowel wall thickening or surrounding inflammatory changes. Redundant sigm oid colon. The appendix is within normal limits. Distal duodenal diverticulum. No evidence of bowel o bstruction. PERITONEUM: No evidence of pneumoperitoneum, free fluid, or adenopathy. VASCULATURE: No aortic aneurysm. MUSCULOSKELETAL: Multilevel degenerative changes are present throughout the thoracolumbar spine. SOFT TISSUE/ABDOMINAL WALL: Small fat filled left inguinal hernia. LOWER CHEST: Minimal bilateral lower lobe subsegmental atelectasis. Coronary artery calcifications. IMPRESSION: 1. Moderate left hydroureteronephrosis with an obstructing 9 mm calculus at the ureterovesical junct ion. Diffuse cortical thinning of the left kidney suggesting long-standing obstruction. 2. No evidence for suspicious renal or urinary bladder mass. No right ureteral suspicious mass ident ified. No contrast demonstrated within the left ureter due to hydronephrosis. Therefore evaluation is limited. 3. Nonobstructive right renal calculi. [facility], , 01/16/2024 10:29 AM
== END ==
LOC: RADCTMAIN 08:41
PROVIDERS: ATTEND Urology
CPT/HCPCS: 36415; 74178; 74400; 82565; 84520

== ENCOUNTER → 2024-01-25 | Outpatient (CLI) | payer MEDICARE, BC ==
[2024-01-25 16:33] LABS: Basophils # (A) 0.07 X 10*3/uL (0.00-0.10); Eosinophils # (A) 0.11 X 10*3/uL (0.04-0.35); Eosinophils % (A) 1.5 %; HCT 44.7 % (39.6-50.0); HGB 14.2 g/dL (13.0-17.0); Lymphocytes # (A) 1.48 X 10*3/uL (0.90-5.00); Lymphocytes % (A) 20.3 %; MCHC 31.8 g/dL (32.0-37.0); MCV 91.4 FL (80.0-97.0); Mean Platelet Volume 10.9 FL (9.5-12.2); Monocytes # (A) 0.66 X 10*3/uL (0.20-1.00); NRBC Per 100 WBC 0 X 10*3/uL (0.00-0.01); Neutrophils # (A) 4.96 X 10*3/uL (1.80-7.70); Neutrophils % (A) 67.9 %; Platelet Count 221 X 10*3/uL (140-440); RBC 4.89 X 10*6/uL (4.40-5.60); RDW 13.8 % (11.5-14.5)
[2024-01-25 16:40] LABS: BUN/Creat Ratio 20.93 Ratio (12.00-20.00); Blood Urea Nitrogen 29.3 mg/dL (9.0-27.0); Calcium 9.5 mg/dL (8.7-10.3); Carbon Dioxide 22.5 mmol/L (21.6-31.8); Chloride 106 mmol/L (96-109); Glucose 114 mg/dL (70-110); Potassium 5.1 mmol/L (3.5-5.5); Sodium 139 mmol/L (135-145)
[2024-01-25 18:48] LABS: Appearance,Urine Clear (Clear); Bilirubin,Urine Negative (Negative); Blood,Urine Moderate (Negative); Color,Urine Yellow (Yellow); Ketones,Urine Negative (Negative); Nitrite,Urine Negative (Negative); Specific Gravity,Urine 1.018 (1.001-1.030); Urobilinogen,Urine 0.2 E.U./DL
[2024-01-25 19:13] LABS: Bacteria,Urine None Seen (None Seen)
== END | disposition home or self-care (01) ==
LOC: LABWHC1 09:26
PROVIDERS: ATTEND Urology
CPT/HCPCS: 36415; 80048; 81001; 85025; 87086

== ENCOUNTER → 2024-02-02 | Day surgery (SDC) | payer MEDICARE, BC ==
[~2024-02-02] MED LIST: HYDROmorphone 0.5 MG/0.5 ML SYRINGE IVP PRN; LIDOCAINE 1% INJ 10MG/ML (20 ML MDV) ONE; LIDOCAINE 4% LTA KIT (4 ML) TOPICAL ONE; MIDAZOLAM 2 MG/2 ML VIAL IV PRN; MIDAZOLAM 2 MG/2 ML VIAL ONE; PROPOFOL 10 MG/ML 20 ML VIAL IV ONE; SUCCINYLCHOLINE CHLORIDE 200 MG/10 ML VIAL IV ONE; ePHEDrine 50 MG/ML 1 ML VIAL ONE; fentaNYL (PF) 50 MCG/ML 2 ML AMP ONE
--- NOTE | 2024-02-02 12:02 | XR ---
EXAMINATION TYPE: XR KUB DATE OF EXAM: 02/02/2024 11:53 AM COMPARISON: CT 01/16/2024. CLINICAL INDICATION: Male, 68 years old with history of Kidney stones; [facility] TECHNIQUE: One radiographic view of the abdomen was obtained. FINDINGS: The bowel gas pattern is nonspecific without dilated loops of small or large bowel. . Fecal material and gas are demonstrated throughout the colon and rectum. There is no evidence for organomegaly or pneumoperitoneum. The osseous structures are intact. Renal calculi projecting over the right kidney prior CT measuring up to 11 mm. Calcification left pelvis as seen on prior CT the distal left ureter measuring up to 17 mm. IMPRESSION: Multiple renal calculi projecting over the right kidney and calcifications over the left pelvis withi n the distal left ureter. Findings similar to prior CT. [facility], , 02/02/2024 12:00 PM
[2024-02-02] MEDS: LACTATED RINGERS 1,000 ML IV SCH (12:50)
[2024-02-02] MEDS: DEXAMETHASONE SOD PHOSPHATE 4 MG/ML 1 ML VIAL IV ONE (12:50)
[2024-02-02] MEDS: ONDANSETRON 4 MG/2 ML VIAL IVP ONE (12:50)
[2024-02-02] MEDS: LACTATED RINGERS 1,000 ML IV ONE ×2 (13:11→16:53)
--- NOTE | 2024-02-02 13:15 | P.HPIHPCON ---
History of Present Illness H&P Date: 02/02/24 Chief Complaint: Gross hematuria, left ureteral stone, right renal stone This is a 68-year-old male with history of gross hematuria, underwent a CT urogram that showed evidence of a 9 mm left-sided distal stone, causing severe hydronephrosis and significant renal atrophy. In addition he also had multiple right-sided renal stone, discussed with him given the finding of the obstructing stone on the left and multiple right-sided renal stones option of bilateral ureteroscopy with holmium laser was discussed. Aware of the risk which includes but not limited to bleeding, infection, injury to the ureter. Risk of anesthesia was also discussed. Discussed given the degree of renal atrophy most likely the left renal ureteral stones been ongoing for a long time, discussed potential that the stone may be completely impacted and may not be able to remove it, at that point we can consider not addressing the stone. Discussed also potential that this might need to be a staged procedure. He understood all risk and agreed to proceed Consent for Procedure: I have explained the operation/procedure to the patient, including the risks, benefits, side effects, alternative therapies (including not receiving the proposed treatment or service), the likelihood of the patient achieving his/her goals, and potential recuperation problems for the procedure/sedation/analgesia, as well as any blood products, if indicated. I also explained to the patient the risks, benefits and side effects of the alternatives, as well as the risks related to not receiving the proposed procedure, care, treatment, or services. Past Medical History Past Medical History: Atrial Fibrillation, Coronary Artery Disease (CAD), Chest Pain / Angina, Hyperlipidemia, Hypertension, Myocardial Infarction ([place]), Osteoarthritis (OA), Prostate Disorder, Sleep Apnea/CPAP/BIPAP Additional Past Medical History / Comment(s): CPAP, palpitations,diverticular disease, kidney stones, afib for 20 years with no issues with afib in the last 10 years, on eliquis, BPH Last Myocardial Infarction Date:: 2003 History of Any Multi-Drug Resistant Organisms: None Reported Past Surgical History: Cardiac Ablation, Heart Catheterization With Stent Additional Past Surgical History / Comment(s): will knee arthroscopies, 3 heart cath-total 3 stents (pt not sure what arteries, colonoscopy, - lt eye sx d/t lazy eye. ovidio, cardioversion Past Anesthesia/Blood Transfusion Reactions: No Reported Reaction Date of Last Stent Placement:: 2003 Smoking Status: Former smoker - Past Family History Father Additional Family Medical History / Comment(s): age 68 from emphysema and etoh abuse. Mother Family Medical History: Congestive Heart Failure (CHF) Additional Family Medical History / Comment(s): at 94. blood in brain from stroke Medications and Allergies Home Medications Medication Instructions Recorded Confirmed Type Enalapril [Vasotec] 5 mg PO DAILY 04/07/15 02/02/24 History Nitroglycerin Sl Tabs [Nitrostat] 0.4 mg SUBLINGUAL Q5M PRN 04/07/15 02/02/24 History atenoloL [Tenormin] 25 mg PO BID 04/07/15 02/02/24 History Atorvastatin [Lipitor] 40 mg PO DAILY 09/25/15 02/02/24 History Apixaban [Eliquis] 5 mg PO BID 10/17/23 02/02/24 History Aspirin EC [Ecotrin Low Dose] 81 mg PO DAILY 10/17/23 02/02/24 History Cholecalciferol (Vitamin D3) 1,250 mcg PO AVALOS 10/17/23 02/02/24 History [Vitamin D3 (1250 Mcg = 50,000 Iu)] Ezetimibe [Zetia] 10 mg PO DAILY 10/17/23 02/02/24 History Allergies Allergy/AdvReac Type Severity Reaction Status Date / Time No Known Allergies Allergy Verified 02/02/24 12:20 Surgical - Exam Vital Signs Temp Pulse Resp BP Pulse Ox 97.2 F L 54 L 16 152/80 96 02/02/24 12:24 02/02/24 12:24 02/02/24 12:24 02/02/24 12:24 02/02/24 12:24 - General no distress, no pain - Eyes normal ocular movement, no pale - ENT normal nares, normal mucosa - Respiratory normal expansion, normal respiratory effort - Abdomen Abdomen: soft, non tender Results - Labs 02/02/24 12:44 Diabetes panel 02/02/24 Range/Units 12:44 Potassium 4.5 (3.5-5.1) mmol/L Pituitary panel 02/02/24 Range/Units 12:44 Potassium 4.5 (3.5-5.1) mmol/L Adrenal panel 02/02/24 Range/Units 12:44 Potassium 4.5 (3.5-5.1) mmol/L Assessment and Plan Assessment: OR for bilateral ureteroscopy, holmium laser lithotripsy, stone basketing and stent insertion
[2024-02-02] MEDS: IOPAMIDOL-370 100ML BTL MISCELLANE ONE (13:41)
[2024-02-02 15:46] VITALS: TEMP 97.1
--- NOTE | 2024-02-02 15:52 | FL ---
EXAMINATION TYPE: FL urography retrograde DATE OF EXAM: 02/02/2024 3:44 PM COMPARISON: Pre Operative Images if available both CT/MRI or plain film CLINICAL INDICATION: Male, 68 years old with history of [place] Kidney Stones; TECHNIQUE: FL urography retrograde, multiple fluoroscopic images provided for procedure. Total fluoroscopy time: 1.07 minutes Total submitted images to PACS: 4 DAP: 25.66 mGym2 Gycm2 uGym2 cGycm2 or equivalent. FINDINGS: Fluoroscopic images during retrograde pyelogram demonstrate contrast in the renal collecting system. There is dilation of the collecting system. No evidence of extravasation of contrast. No immediate co mplication identified. IMPRESSION: 1. No evidence for intraoperative complication. 2. Please see the operative/procedural note for further details. [facility], , 02/02/2024 3:49 PM
[2024-02-02 16:21] VITALS: RESP 16
[2024-02-02] MEDS: KETOROLAC 15 MG/ML 1 ML VIAL IVP STA (17:11)
[2024-02-02 17:18] VITALS: BP 158/79; PULSE 74
--- NOTE | 2024-02-02 17:57 | P.OP ---
Date of Procedure: 02/02/24 Preoperative Diagnosis: Gross hematuria, left ureteral stone, right renal stones Postoperative Diagnosis: Same Procedure(s) Performed: Cystoscopy, left retrograde pyelogram, bilateral ureteroscopy, Holmium laser lithotripsy, stone basketing and stent insertion Implants: 6 Amharic by 26 cm stent in the bilateral ureters Anesthesia: NATE Surgeon: Nitin Garcia Estimated Blood Loss (ml): 10 Pathology: other (Left ureteral, right renal stone) Condition: stable Disposition: PACU Indications for Procedure: This is a 68-year-old male with history of gross hematuria, underwent a CT urogram that showed evidence of a 9 mm left-sided distal stone, causing severe hydronephrosis and significant renal atrophy. In addition he also had multiple right-sided renal stone, discussed with him given the finding of the obstructing stone on the left and multiple right-sided renal stones option of bilateral ureteroscopy with holmium laser was discussed. Aware of the risk which includes but not limited to bleeding, infection, injury to the ureter. Risk of anest hesia was also discussed. Discussed given the degree of renal atrophy most likely the left renal ureteral stones been ongoing for a long time, discussed potential that the stone may be completely impacted and may not be able to remove it, at that point we can consider not addressing the stone. Discussed also potential that this might need to be a staged procedure. He understood all risk and agreed to proceed Operative Findings: Left impacted ureteral stone, multiple right-sided renal stones Description of Procedure: Patient brought to the operating room, general anesthesia was induced. He was prepped and draped in sterile fashion placed in dorsolithotomy position. Cystoscopy fitted with a 21 Amharic sheath was inserted per urethra, cystoscopy was performed showed no abnormality within the bladder. Prostate was moderately enlarged and occlusive. Attention was then carried to the left ureteral orifice, I intubated left ureter orifice with an open-ended catheter, retrograde pyelogram was performed which showed a filling defect at the level of the distal ureter at the level of the known stone, with significant hydroureteronephrosis and a very faint amount of contrast went past the stone. At this time I attempted to pass a wire through the catheter but resistance was met at the level of the stone. At this time I switched to a semirigid ureteroscope was was advanced per urethra and up the left ureteral orifice, a stone was seen at the distal ureter I made multiple attempts to advance a Glidewire across the stone but resistance was met. At this point using the holmium laser I gently started fragmenting the stone, after partially fragmenting the stone I was able to visualize an opening into the ureter and this time a wire was advanced through and into the kidney under fluoroscopy. I further fragmented some of the stone, but of note there was significant ureteral edema and some ureteral backbleeding which limited visualization, at this point I did basketing of the stone fragments. But there was still some residual stone left but given the edema and the ureteral backbleeding I did not perform any further holmium laser lithotripsy. At this time the ureteroscope was withdrawn with the wire in place. Next a ureteral stent was passed over the wire, the proximal curl visualized on fluoroscopy and the distal curl was visualized using the cystoscope. Hydronephrotic drip was seen from the stent. At this time attention was carried to the right side which was intubated with a sensor wire, the wire was advanced under fluoroscopy into the kidney. X 1113 Amharic access sheath was passed over the wire into the proximal ureter next a flexible ureteroscope was inserted through the access sheath, renoscopy was performed showed multiple stones within the kidney, using the holmium laser the stones were fragmented, of note there was significant amount of dust which limited visualization but sizable fragments I did basket, repeat renoscopy showed no sizable fragments or injury to the kidney. Pullback ureteroscopy was performed showed no injury to the ureter or any ureteral stones, as ureteroscope was wit hdrawn a sensor wire was advanced through. Next a ureteral stent was passed over the wire, the proximal curl visualized on fluoroscopy and the distal curl was visualized using the cystoscope. The bladder was emptied at the end of the case. Patient tolerated procedure was taken to recovery in stable condition, he will follow-up in 2 to 3 weeks for second stage ureteroscopy to clear any remaining stones
== END ==
LOC: OR 11:16
PROVIDERS: ATTEND Urology
DX: N20.2 Calculus of kidney with calculus of ureter (principal); I10 Essential (primary) hypertension; M19.90 Unspecified osteoarthritis, unspecified site; E78.5 Hyperlipidemia, unspecified; I25.10 Atherosclerotic heart disease of native coronary artery without angina pectoris; N40.1 Benign prostatic hyperplasia with lower urinary tract symptoms; I48.91 Unspecified atrial fibrillation; G47.33 Obstructive sleep apnea (adult) (pediatric); E66.01 Morbid (severe) obesity due to excess calories; I25.2 Old myocardial infarction; Z68.36 Body mass index [BMI] 36.0-36.9, adult; Z87.891 Personal history of nicotine dependence; Z82.49 Family history of ischemic heart disease and other diseases of the circulatory system; Z82.3 Family history of stroke; Z79.01 Long term (current) use of anticoagulants; Z79.82 Long term (current) use of aspirin; Z79.899 Other long term (current) drug therapy
CPT/HCPCS: 84132; 82365; 74420; 74018; 52356; J1100; J0690; J2405; J1885; Q9967

== ENCOUNTER 2024-02-13 11:59 | Day surgery (SDC) | payer MEDICARE, BC ==
[2024-02-08 10:47] VITALS: BMI 47.5
--- NOTE | 2024-02-13 08:32 | P.HPIHPCON ---
History of Present Illness H&P Date: 02/13/24 Chief Complaint: Left ureteral stone, right renal stone This is a 68-year-old male with history of gross hematuria, underwent a CT urogram that showed evidence of a 9 mm left-sided distal stone, causing severe hydronephrosis and significant renal atrophy. In addition he also had multiple right-sided renal stone, he underwent bilateral ureteroscopy with holmium laser on February 01. Of note the stone on the left side was impacted thus complete fragmentation could not be performed. Also had significant amount of right sided renal stone. Discussed with him at this point I recommend proceeding with repeat bilateral ureteroscopy to address any residual stones. Aware of the risk which includes but not limited to bleeding, infection, injury to the ureter Consent for Procedure: I have explained the operation/procedure to the patient, including the risks, benefits, side effects, alternative therapies (including not receiving the proposed treatment or service), the likelihood of the patient achieving his/her goals, and potential recuperation problems for the procedure/sedation/analgesia, as well as any blood products, if indicated. I also explained to the patient the risks, benefits and side effects of the alternatives, as well as the risks related to not receiving the proposed procedure, care, treatment, or services. Past Medical History Past Medical History: Atrial Fibrillation, Coronary Artery Disease (CAD), Chest Pain / Angina, Hyperlipidemia, Hypertension, Myocardial Infarction (UT), Osteoarthritis (OA), Prostate Disorder, Sleep Apnea/CPAP/BIPAP Additional Past Medical History / Comment(s): CPAP, papitations,diverticular disease, kidney stones, afib for 20 years with no issues with afib in the last 10 years, on eliqu Last Myocardial Infarction Date:: 2003 History of Any Multi-Drug Resistant Organisms: None Reported Past Surgical History: Cardiac Ablation, Heart Catheterization With Stent Additional Past Surgical History / Comment(s): will knee arthroscopies, 3 heart cath-total 3 stents (pt not sure what arteries, colonoscopy, - lt eye sx d/t lazy eye. ovidio, cardioversion Past Anesthesia/Blood Transfusion Reactions: No Reported Reaction Date of Last Stent Placement:: 2003 Smoking Status: Former smoker - Past Family History Father Additional Family Medical History / Comment(s): age 68 from emphysema and etoh abuse. Mother Family Medical History: Congestive Heart Failure (CHF) Additional Family Medical History / Comment(s): at 94. blood in brain from stroke Medications and Allergies Home Medications Medication Instructions Recorded Confirmed Type Enalapril [Vasotec] 5 mg PO DAILY 04/07/15 02/08/24 History Nitroglycerin Sl Tabs [Nitrostat] 0.4 mg SUBLINGUAL Q5M PRN 04/07/15 02/08/24 History atenoloL [Tenormin] 25 mg PO BID 04/07/15 02/08/24 History Atorvastatin [Lipitor] 40 mg PO DAILY 09/25/15 02/08/24 History Apixaban [Eliquis] 5 mg PO BID 10/17/23 02/08/24 History Aspirin EC [Ecotrin Low Dose] 81 mg PO DAILY 10/17/23 02/08/24 History Cholecalciferol (Vitamin D3) 1,250 mcg PO AVALOS 10/17/23 02/08/24 History [Vitamin D3 (1250 Mcg = 50,000 Iu)] Ezetimibe [Zetia] 10 mg PO DAILY 10/17/23 02/08/24 History Allergies Allergy/AdvReac Type Severity Reaction Status Date / Time No Known Allergies Allergy Verified 02/08/24 10:48 Surgical - Exam - General no distress, no pain - Eyes normal ocular movement, no pale - ENT normal nares, normal mucosa - Respiratory normal expansion, normal respiratory effort - Abdomen Abdomen: soft, non tender, no distended Assessment and Plan Assessment: OR for bilateral ureteroscopy, holmium lithotripsy, stone basketing and stent removal versus exchange
[~2024-02-13 11:59] MED LIST changes: -HYDROmorphone 0.5 MG/0.5 ML SYRINGE IVP PRN; -LIDOCAINE 1% INJ 10MG/ML (20 ML MDV) ONE; -LIDOCAINE 4% LTA KIT (4 ML) TOPICAL ONE; -MIDAZOLAM 2 MG/2 ML VIAL ONE; -PROPOFOL 10 MG/ML 20 ML VIAL IV ONE; -SUCCINYLCHOLINE CHLORIDE 200 MG/10 ML VIAL IV ONE; -ePHEDrine 50 MG/ML 1 ML VIAL ONE; -fentaNYL (PF) 50 MCG/ML 2 ML AMP ONE
[2024-02-13] MEDS: IV FLUID CONTINUATION 1,000 ML IV ONE (12:44)
[2024-02-13] MEDS: LIDOCAINE 1% (10MG/ML) FOR IV START INTRADERMA STA (12:44)
[2024-02-13] MEDS: LACTATED RINGERS 1,000 ML IV SCH (12:44)
[2024-02-13] MEDS: ONDANSETRON 4 MG/2 ML VIAL IVP ONE (12:45)
[2024-02-13] MEDS: DEXAMETHASONE SOD PHOSPHATE 4 MG/ML 1 ML VIAL IV ONE (12:45)
[2024-02-13] MEDS ORDERED: PROPOFOL 10 MG/ML 20 ML VIAL IV ONE (14:17)
[2024-02-13] MEDS ORDERED: ePHEDrine 50 MG/ML 1 ML VIAL ONE (14:17)
[2024-02-13] MEDS ORDERED: MIDAZOLAM 2 MG/2 ML VIAL ONE (14:17)
[2024-02-13] MEDS ORDERED: LIDOCAINE 1% INJ 10MG/ML (20 ML MDV) ONE (14:17)
[2024-02-13] MEDS ORDERED: SUCCINYLCHOLINE CHLORIDE 200 MG/10 ML VIAL IV ONE (14:17)
[2024-02-13] MEDS ORDERED: fentaNYL (PF) 50 MCG/ML 2 ML AMP ONE (14:17)
[2024-02-13] MEDS: ceFAZolin 3 GM in SODIUM CHLORIDE 0.9% 100 ML IVPB PRN (14:22)
[2024-02-13 15:58] VITALS: TEMP 97
[2024-02-13] MEDS: HYDROmorphone 0.5 MG/0.5 ML SYRINGE IVP PRN (16:22)
--- NOTE | 2024-02-13 16:38 | FL ---
EXAMINATION TYPE: FL guidance operating room DATE OF EXAM: 02/13/2024 4:00 PM COMPARISON: Pre Operative Images if available both CT/MRI or plain film CLINICAL INDICATION: Male, 68 years old with history of N20.1, N20.0 URETERAL STONE RENAL STONE; TECHNIQUE: FL guidance operating room, multiple fluoroscopic images provided for procedure. Total fluoroscopy time: 20.7 seconds Total submitted images to PACS: 5 DAP: 0.56113 mGym2 Gycm2 uGym2 cGycm2 or equivalent. FINDINGS: Fluoroscopic imaging for Port-A-Cath insertion no evidence for pneumothorax. Multilevel degeneration changes of the spine. IMPRESSION: 1. No evidence for intraoperative complication. 2. Please see the operative/procedural note for further details. [facility], , 02/13/2024 4:35 PM
[2024-02-13 16:49] VITALS: RESP 16
[2024-02-13 17:30] VITALS: BP 142/73; PULSE 61
--- NOTE | 2024-02-20 15:40 | P.OP ---
Date of Procedure: 02/13/24 Preoperative Diagnosis: Right renal left ureteral stone Postoperative Diagnosis: Same Procedure(s) Performed: Cystoscopy, bilateral ureteroscopy, holmium laser lithotripsy, stone basketing and left stent exchange Anesthesia: NATE Surgeon: Nitin Garcia Estimated Blood Loss (ml): 5 Pathology: other (Left ureteral, right renal stones) Condition: stable Disposition: PACU Indications for Procedure: This is a 68-year-old male with history of gross hematuria, underwent a CT urogram that showed evidence of a 9 mm left-sided distal stone, causing severe hydronephrosis and significant renal atrophy. In addition he also had multiple right-sided renal stone, he underwent bilateral ureteroscopy with holmium laser on February 01. Of note the stone on the left side was impacted thus complete fragmentation could not be performed. Also had significant amount of right sided renal stone. Discussed with him at this point I recommend proceeding with repeat bilateral ureteroscopy to address any residual stones. Aware of the risk which includes but not limited to bleeding, infection, injury to the ureter Operative Findings: Few small calculi along the left distal ureter, edema at the site of the stone. Multiple right-sided renal stones Description of Procedure: Patient to the operating room, general anesthesia was induced. He was prepped and draped in sterile fashion placed in dorsolithotomy position. Cystoscopy through the 21 Maltese sheath was inserted per urethra, cystoscopy was performed showed no abnormality within the bladder. Patient did have an enlarged prostate with an enlarged median lobe with intravesical extension. At this time the left ureter orifice was visualized and the stent was grasped and removed intact. At this point a semirigid ureteroscope was inserted per urethra and advanced up the left ureteral orifice, at the site of the distal ureter there was ureteral edema with multiple stones, one of the stone was sizable, using the holmium laser the stone was fragmented, at this point all stone fragments were removed using the stone basket. At this time I advanced the ureteroscope all the way up to the proximal ureter which showed no evidence of any stones, pullback ureteroscopy was performed showed no injury to the ureter or any ureteral stones. There was edema at the distal ureter, at this point a sensor wire was advanced through the ureteroscope and up into the kidney. At this point the cystoscope was backloaded over the wire, next a ureteral stent was passed over the wire, the proximal curl was realized on fluoroscopy and the distal curl was visualized using the cystoscope. Attention was then carried to the right side, the stent was grasped using the cystoscope and removed to the meatus. Next a sensor wire was advanced through the stent and the stent was removed with the wire in place. Next under fluoroscopy 1113 Maltese access sheath was passed over the wire and into the proximal ureter. The flexibie ureteroscope was inserted through the access sheath, renoscopy was performed showed multiple stones within the kidney of note all stones appeared to be fragmented but a couple of them were sizable. Using the holmium laser the stones were dusted, any sizable fragments were removed using the stone basket. Repeat renoscopy showed no sizable fragments or injury to the kidney, on fluoroscopy there was no evidence of any radiopaque densities. Pullback ureteroscopy was performed showed no injury to the ureter or any ureteral stones. The bladder was emptied at the end of the case. Patient tolerated procedure well was taken to recovery in stable condition
== END 2024-02-13 18:18 | disposition home or self-care (01) ==
LOC: OR 11:59
PROVIDERS: ATTEND Urology
DX: N20.2 Calculus of kidney with calculus of ureter (principal); I48.91 Unspecified atrial fibrillation; I10 Essential (primary) hypertension; E78.5 Hyperlipidemia, unspecified; I25.10 Atherosclerotic heart disease of native coronary artery without angina pectoris; G47.33 Obstructive sleep apnea (adult) (pediatric); I25.2 Old myocardial infarction; M19.90 Unspecified osteoarthritis, unspecified site; Z87.891 Personal history of nicotine dependence; Z82.49 Family history of ischemic heart disease and other diseases of the circulatory system; Z82.3 Family history of stroke; Z79.01 Long term (current) use of anticoagulants; Z79.82 Long term (current) use of aspirin; Z79.899 Other long term (current) drug therapy
CPT/HCPCS: 82365; 52356; C2625; C1769; J2250; J0330; J1100; J0690; J2405; J2003; J3010; J2704; J1171

== ENCOUNTER → 2024-03-15 | Outpatient (CLI) | payer MEDICARE, BC ==
[~2024-03-15] MED LIST changes: +FUROSEMIDE 10 MG/ML 2 ML VIAL IV ONE; -MIDAZOLAM 2 MG/2 ML VIAL IV PRN
--- NOTE | 2024-03-15 09:31 | NM ---
EXAMINATION TYPE: NM lasix renogram DATE OF EXAM: 03/15/2024 COMPARISON: NONE CLINICAL INDICATION: Male, 68 years old with history of N20.1 calculus of ureter; Following administration of 10.42 mCi Tc 99m MAG3 with 20mg Lasix. Immediate images post injection FINDINGS: Left: 9.368 %. Right: 90.6 %. Max renal flow left: 0.58 minutes. Max renal flow right: 3.00 minutes. Satisfactory accumulation of radiotracer within both renal collecting systems. After the administrati on of Lasix, there is prompt excretion from both collecting systems. T 1/2 left: NA minutes. T 1/2 right: 20.5 minutes. IMPRESSION: 1. Poor left renal function. Normal right Lasix renogram. 2. No evidence for obstruction. [facility], , 03/15/2024 9:29 AM
== END | disposition home or self-care (01) ==
LOC: RADNMMAIN 07:00
PROVIDERS: ATTEND Urology
DX: N20.1 Calculus of ureter (principal)
CPT/HCPCS: 78708; A9562

== ENCOUNTER → 2024-07-04 | Outpatient (CLI) | payer MEDICARE, BC ==
[2024-07-04 14:53] LABS: BUN/Creat Ratio 15.69 Ratio (12.00-20.00); Blood Urea Nitrogen 20.4 mg/dL (9.0-27.0); Chloride 105 mmol/L (96-109); Chol/HDL Ratio 2.35 Ratio; Glucose 130 mg/dL (70-110); Potassium 5.2 mmol/L (3.5-5.5); Sodium 140 mmol/L (135-145)
[2024-07-04 14:54] LABS: ALT 21 U/L (10-49); AST 17 U/L (14-35); Albumin/Globulin Ratio 1.82 Ratio (1.60-3.17); Alkaline Phosphatase 91 U/L (41-126); Calcium 9.4 mg/dL (8.7-10.3); Carbon Dioxide 26.3 mmol/L (21.6-31.8); Globulin 2.2 g/dL (1.6-3.3); Total Bilirubin 0.4 mg/dL (0.3-1.2); Total Protein 6.2 g/dL (6.2-8.2)
== END | disposition home or self-care (01) ==
LOC: LABWHC1 09:25
PROVIDERS: ATTEND Internal Medicine Interventional Cardiology
DX: I10 Essential (primary) hypertension (principal); E78.2 Mixed hyperlipidemia
CPT/HCPCS: 36415; 80053; 80061

== ENCOUNTER → 2024-10-21 | Outpatient (CLI) | payer MEDICARE, BC ==
[2024-10-21 10:47] LABS: HCT 44.9 % (39.6-50.0); HGB 14.5 g/dL (13.0-17.0); MCH 29.0 pg (27.0-32.0); MCHC 32.3 g/dL (32.0-37.0); MCV 89.8 FL (80.0-97.0); NRBC Per 100 WBC 0 X 10*3/uL (0.00-0.01); Platelet Count 237 X 10*3/uL (140-440); RBC 5.00 X 10*6/uL (4.40-5.60); RDW 13.7 % (11.5-14.5); WBC 8.27 X 10*3/uL (4.50-10.00)
[2024-10-21 10:57] LABS: Anion Gap 13.90 mmol/L (4.00-12.00); Blood Urea Nitrogen 25.4 mg/dL (9.0-27.0); Carbon Dioxide 21.1 mmol/L (21.6-31.8); Chloride 105 mmol/L (96-109); Potassium 4.8 mmol/L (3.5-5.5); Sodium 140 mmol/L (135-145)
== END | disposition home or self-care (01) ==
LOC: LABWHC1 07:09
PROVIDERS: ATTEND Internal Medicine Clinical Cardiac Electrophysiology
DX: Z01.812 Encounter for preprocedural laboratory examination (principal); I48.0 Paroxysmal atrial fibrillation
CPT/HCPCS: 36415; 80051; 82565; 84520; 85027

== ENCOUNTER 2024-10-29 05:43 | Day surgery (SDC) | payer MEDICARE, BC ==
[2024-10-24 11:53] VITALS: BMI 51.6
[2024-10-29] MEDS: IV FLUID CONTINUATION 1,000 ML IV ONE (06:20)
[2024-10-29] MEDS: SODIUM CHLORIDE 0.9% 1,000 ML IV SCH (06:20)
[2024-10-29] MEDS ORDERED: MIDAZOLAM 2 MG/2 ML VIAL IV PRN (07:00)
[2024-10-29] MEDS ORDERED: ISOPROTERENOL 250 MCG/1.25 ML SYR IV ONE (07:37)
[2024-10-29] MEDS ORDERED: PHENYLEPHRINE 10 MG/ML VIAL ONE (07:37)
[2024-10-29] MEDS ORDERED: ROCURONIUM 10 MG/ML (5 ML VIAL) IV ONE (07:37)
[2024-10-29] MEDS ORDERED: LIDOCAINE 1% INJ 10MG/ML (20 ML MDV) ONE (07:37)
[2024-10-29] MEDS ORDERED: fentaNYL (PF) 50 MCG/ML 2 ML AMP ONE (07:37)
[2024-10-29] MEDS ORDERED: PROPOFOL 10 MG/ML 20 ML VIAL IV ONE (07:37)
[2024-10-29] MEDS ORDERED: NEOSTIGMINE 1 MG/ML 10 ML VIAL ONE (07:37)
[2024-10-29] MEDS ORDERED: MIDAZOLAM 2 MG/2 ML VIAL ONE (07:37)
[2024-10-29] MEDS ORDERED: HEPARIN SODIUM,PORCINE 10,000 UNIT/ML 1 ML VIAL ONE (07:37)
[2024-10-29] MEDS ORDERED: ePHEDrine 50 MG/ML 1 ML VIAL ONE (07:37)
[2024-10-29] MEDS ORDERED: GLYCOPYRROLATE 0.2 MG/ML 2 ML VIAL ONE (07:37)
[2024-10-29] MEDS ORDERED: HEPARIN SODIUM,PORCINE 5,000 UNIT/ML 1 ML VIAL ONE (07:37)
[2024-10-29] MEDS ORDERED: SUCCINYLCHOLINE CHLORIDE 200 MG/10 ML VIAL IV ONE (07:37)
[2024-10-29] MEDS: HEPARIN SODIUM,PORCINE/D5W 25,000 UNIT in EMPTY BAG 1 BAG IV ONE (08:00)
[2024-10-29] MEDS: HEPARIN SODIUM,PORCINE 10,000 UNIT in SODIUM CHLORIDE 0.9% 1,000 ML IRRIGATION ONE (08:02)
[2024-10-29] MEDS: LIDOCAINE 1% INJ 10MG/ML (20 ML MDV) SQ ONE (08:18)
[2024-10-29] MEDS: HEPARIN SODIUM,PORCINE (1 ML) 2,500 UNIT in SODIUM CHLORIDE 0.9% 250 ML IRRIGATION ONE (10:12)
[2024-10-29] MEDS: IOPAMIDOL-370 100ML BTL INJ ONE (10:31)
[2024-10-29] MEDS ORDERED: ACETAMINOPHEN TAB 325 MG TAB PO PRN (10:48)
--- NOTE | 2024-10-29 11:02 | P.EPPROC ---
- EP Procedure Note Electrophysiology Procedure Note: PROCEDURE A. fib ablation with PVI and left atrial septal ablation DIAGNOSIS Paroxysmal atrial fibrillation, symptomatic, refractory to therapy. Morbid obesity RESULT No left atrial appendage mass seen on intracardiac echo, mildly thickened pericardium without effusion Successful A. fib ablation/pulmonary vein isolation of all veins using cryo- ablation Complete entrance block in all 4 veins confirmed No evidence for phrenic nerve injury Left atrial septal ablation Esophageal deflection NO Very large pulmonary veins, multiple tributaries within each vein requiring subselection of these veins/multiple cryo ablations for complete antral level isolation for each pulmonary vein antrum PROCEDURE DETAILS Written informed consent prior to procedure. Patient brought to the EP lab. General anesthesia given. Heparin administered. ACT maintained above 300 seconds Both groins prepped and draped per protocol and venous sheaths placed. Esophagus intubated, circa catheter for temperature monitoring an endoscope for possible esophageal deflection. Phrenic nerve monitoring performed. Esophageal temperature monitoring performed. Esophageal deflection performed if circa catheter overlapping with the balloon or circa temperature less than 27.5°C Intracardiac echocardiography performed. Pericardium evaluated. Left atrial appendage evaluated. Left atrium evaluated along with pulmonary veins Transseptal catheterization performed under fluoroscopic guidance and intracardiac echo guidance Cryoablation sheath exchanged, balloon catheter along with achieve catheter placed in the left atrium. Pulmonary veins isolated in the following sequence: Left superior pulmonary vein followed by left inferior pulmonary vein, followed by right inferior pulmonary vein and lastly right superior pulmonary vein. Phrenic nerve stimulation along with capture thresholds within the SVC and right superior pulmonary vein to identify the phrenic nerve proximity to the cryo- balloon. Pulmonary veins isolated and confirmed with entrance and exit block. Phrenic nerve integrity confirmed at the end of the procedure Ablation of the left atrial septum performed with cannulation of the superior branch of the right inferior or the inferior branch of the right superior vein to achieve ablation of the posterior septum of the left atrium. Ablation of electrograms confirmed Diagnostic catheters for the high right atrium, His bundle, coronary sinus placed. LA and RA pressures recorded LA pressure: 18/11/12 Diagnostic EP study with coronary sinus pacing and recording Baseline measurements: 1250, 1291 AV node Wenckebach block 300 ms AH 115, HV 48 SC 136, QRS 95, QT 365 Venous sheaths were removed and hemostasis assured with a closure devices. Patient extubated and transferred to recovery Increase procedural time Multiple attempts needed for successful cryoablation isolation of the pulmonary vein. All pulmonary veins were very large in diameter and had multiple tributaries draining into each vein. Each tributary was selectively engaged and a entry-level cryoablation was performed with multiple cryo ablations for each vein. This resulted in extended time requirement. Successful ablation performed at an antral level with complete isolation In addition patient is morbidly obese. Vascular access was very difficult and took an extended time duration. No complications noted at the end The patient heart was quite rotated, counterclockwise making catheter manipula tion challenging. However this was successfully performed and successful entry- level pulmonary isolation was achieved without any acute complications PROCEDURES PERFORMED Diagnostic EP study CS pacing and recording Left and right transseptal catheterization Catheter the mapping of the tachycardia Intracardiac echocardiography Pulmonary vein isolation with transseptal and comprehensive EPS, [id number] Extended procedure duration Drug infusion, +[id number] Linear ablation, left atrium, +[id number]
--- NOTE | 2024-10-29 11:37 | P.PRLE ---
RE: Donald Wright Dear Donald Fernandez underwent a diagnostic EP study followed by successful ablation of all pulmonary veins. He will continue anticoagulation and follow-up with you and Dr. Villalobos as before Thank you for entrusting me with the care of the patient Warm regards Sincerely Jesús Byrd
[2024-10-29] MEDS: HYDROmorphone 0.5 MG/0.5 ML SYRINGE IVP PRN (13:31)
[2024-10-29 15:41] VITALS: RESP 16
[2024-10-29] MEDS: LACTATED RINGERS 1,000 ML IV SCH (15:42)
[2024-10-29 20:48] VITALS: BP 97/62; PULSE 85; TEMP 97.9
[2024-10-29] MEDS: APIXABAN 5 MG TAB PO SCH (21:03)
[2024-10-29] MEDS: BENZOCAINE/MENTHOL LOZENG 1 EACH LOZENGE MUCOUS MEM PRN (21:04)
[2024-10-30] MEDS ORDERED: ATORVASTATIN 40 MG TAB PO SCH (09:00)
[2024-10-30] MEDS ORDERED: ASPIRIN 81 MG PO SCH (09:00)
[2024-10-30] MEDS ORDERED: EZETIMIBE 10 MG TAB PO SCH (09:00)
== END 2024-10-29 22:00 | disposition home or self-care (01) ==
LOC: CATHEP 05:43 → 6NMEDSUR 10:20 → CATHEP 22:00
PROVIDERS: ATTEND Internal Medicine Clinical Cardiac Electrophysiology
DX: I48.0 Paroxysmal atrial fibrillation (principal); E66.01 Morbid (severe) obesity due to excess calories; Z79.82 Long term (current) use of aspirin; Z79.01 Long term (current) use of anticoagulants; Z68.43 Body mass index [BMI] 50.0-59.9, adult
CPT/HCPCS: 93623; 93656; 93657; 86900; 86901; 84443; 86850; C1894; C1769; C1760 ×3; C1759; C1730 ×2; C1733; C1766; J2250; J0330; J1644 ×3; J2710; J2003; J3010; J2704; J1171; Q9967; J2371; J1596